=== PATIENT | male | born 1945 | race Caucasian/White ===

== ENCOUNTER 2022-01-01 12:55 | Day surgery (SDC) | payer MEDICARE, SELFPAY ==
[2021-12-16 09:27] VITALS: BMI 33.0
[2022-01-01 13:30] VITALS: BP 155/89; PULSE 84; RESP 18; TEMP 37.1; O2SAT 98; BMI 33.4
[2022-01-01] MEDS: LACTATED RINGERS 1,000 ML 150 ML IV CONT (13:45)
--- NOTE | 2022-01-01 13:49 | WPDANESEPPF ---
Anes - Initial Pre Proc Eval Procedure: Operation Date: 01/01/22 14:30 Proposed Procedures p Screening Colonoscopy - Bean Florian MD Date/Time: 01/01/22 13:49 Surgeon: Bean Florian MD Pre Op Diagnosis: Family History of Colon Cancer Patient Data Age: 76 Gender: M Height: 1.74 m Weight: 101.2 kg Last Vital Signs Temp 37.1 C 01/01/22 13:30 Pulse 84 01/01/22 13:30 Resp 18 01/01/22 13:30 BP 155/89 H 01/01/22 13:30 Pulse Ox 98 01/01/22 13:30 O2 Del Method Room Air 01/01/22 13:30 Allergies Allergy/AdvReac Type Severity Reaction Status Date / Time Sulfa (Sulfonamide Allergy Mild sensative Verified 01/01/22 13:23 Antibiotics) Home Medications Medication Instructions Recorded Confirmed Type aspirin 81 mg tablet,delayed 81 mg PO DAILY 06/27/20 01/01/22 History release (Adult Low Dose Aspirin) cholecalciferol (vitamin D3) 25 25 mcg PO DAILY 06/27/20 01/01/22 History mcg (1,000 unit) capsule cinnamon bark 500 mg capsule 1,000 mg PO DAILY 06/27/20 01/01/22 History docusate sodium 100 mg capsule 700 mg PO DAILY 06/27/20 01/01/22 History (Colace) flaxseed 1,000 mg capsule 1,000 mg PO DAILY 06/27/20 01/01/22 History methylsulfonylmethane 1,000 mg 1,000 mg PO BID 06/27/20 01/01/22 History capsule (MSM) multivitamin 1 tablet PO DAILY 06/27/20 01/01/22 History naproxen sodium 220 mg tablet 220 mg PO BID PRN Pain 06/27/20 01/01/22 History (Flanax (naproxen)) turmeric root extract 500 mg 500 mg PO DAILY 06/27/20 01/01/22 History capsule blood sugar diagnostic #100 ea 03/17/21 09/24/21 Rx losartan 100 mg tablet 100 mg PO DAILY #90 tabs 09/15/21 01/01/22 Rx triamcinolone acetonide 0.1 % 1 applic topical BID #30 grams 09/24/21 01/01/22 Rx topical cream rosuvastatin 5 mg tablet 5 mg PO DAILY #90 tabs 09/30/21 01/01/22 Rx metformin 500 mg tablet 500 mg PO DAILY #90 tabs 10/08/21 01/01/22 Rx hydrochlorothiazide 12.5 mg tablet 12.5 mg PO DAILY #90 tabs 12/12/21 01/01/22 Rx amlodipine 10 mg tablet 5 mg PO DAILY 12/16/21 01/01/22 History Patient hx anesthesia problems: none Family hx anesthesia problems: none Results Review: All pre-operative results and documents have been reviewed as part of the pre-operative evaluation. [facility] Past Medical History Medical History Diabetes mellitus, type 2 Eczema HTN (hypertension), benign Mixed hyperlipidemia Obesity (BMI 30.0-34.9) Surgical History Surgical History H/O arthroscopy of right knee 1989 History of cholecystectomy 2011 History of repair of retinal tear by laser photocoagulation Left eye 2011, right eye 2007 Status post laser cataract surgery of left eye 2013 Status post laser cataract surgery of right eye 2011 Family History Family History Father 1982 COPD COPD (chronic obstructive pulmonary disease) Mother 2019 Dementia Heart disease Colon cancer Sibling Heart disease Sinus, maxillary, cancer, carcinoma Social History Social History Smoking status: Former smoker Second hand tobacco smoke exposure: No Alcohol intake: never Substance use: never Living arrangements: with family Gender identity (if verbalized by the patient): Male Sexual Orientation (if Verbalized by the Patient): Straight or Heterosexual Spiritual care concerns: No Anes - Eval Final PreProcedure Day of Procedure 01/01/22 13:49 Patient weight: obese Heart: regular rate and rhythm Lungs: clear to auscultation Airway: Mallampati scale class II Neurological: alert and oriented Last oral intake: >/= 8 hours ASA classification: III Emergent: no Anesthetic plan: proceed Anesthesia type and monitoring: general GIVS and standard monitoring Results Review: Al
[2022-01-01 13:56] LABS: Glucose Point of Care 111 mg/dl (65-105)
[2022-01-01 14:16] VITALS: BP 111/70; PULSE 66; RESP 20; O2SAT 97
[2022-01-01 14:26] VITALS: BP 124/75; PULSE 74; RESP 20; O2SAT 97
--- NOTE | 2022-01-01 14:29 | WPDANESPN ---
Anes - Prog Note Post-Op Date/Time: 01/01/22 14:29 Cardiovascular status: normal Respiratory status: normal Airway patency: baseline Mental status: baseline Post-Op hydration status: normal Vital Signs: Last Vital Signs Temp 37.1 C 01/01/22 13:30 Pulse 84 01/01/22 13:30 Resp 18 01/01/22 13:30 BP 155/89 H 01/01/22 13:30 Pulse Ox 98 01/01/22 13:30 O2 Del Method Room Air 01/01/22 13:30 Pain Score (VAS): 0/10 I/O: Intake & Output 12/31/21 01/01/22 01/01/22 23:59 07:59 15:59 Intake Total 400 Balance 400 01/01/22 13:43 POC Capillary Glucose 111 H Post-procedural complaints: none Patient Feedback: Patient satisfied with anesthetic care.
[2022-01-01 14:36] VITALS: BP 128/78; PULSE 69; RESP 20; O2SAT 98
--- NOTE | 2022-01-01 15:03 | PM.IMHP ---
H&P: HPI History of Present Illness Date/Time: 01/01/22 15:03 Chief Complaint: Neoplasia screening. Narrative: This is a 76-year-old white male patient presents for screening colonoscopy. Family history of significance father had colon cancer. Patient reports his current weight appetite bowel movements are normal. He denies abdominal pain. Patient has had no bleeding. Patient presents today for screening colonoscopy. Review of Systems Review of Systems: Review of systems noncontributory. PMFSH Past Medical History Medical History Diabetes mellitus, type 2 Eczema HTN (hypertension), benign Mixed hyperlipidemia Obesity (BMI 30.0-34.9) Surgical History Surgical History H/O arthroscopy of right knee 1989 History of cholecystectomy 2011 History of repair of retinal tear by laser photocoagulation Left eye 2011, right eye 2007 Status post laser cataract surgery of left eye 2013 Status post laser cataract surgery of right eye 2011 Family History Family History Father , 1982 COPD COPD (chronic obstructive pulmonary disease) Mother 2019 Dementia Heart disease Colon cancer Sibling Heart disease Sinus, maxillary, cancer, carcinoma Social History Social History Smoking status: Former smoker Second hand tobacco smoke exposure: No Alcohol intake: never Substance use: never Living arrangements: with family Gender identity (if verbalized by the patient): Male Sexual Orientation (if Verbalized by the Patient): Straight or Heterosexual Spiritual care concerns: No Meds Home Medications and Allergies Home Medications Medication Instructions Recorded Confirmed Type aspirin 81 mg tablet,delayed 81 mg PO DAILY 06/27/20 01/01/22 History release (Adult Low Dose Aspirin) cholecalciferol (vitamin D3) 25 25 mcg PO DAILY 06/27/20 01/01/22 History mcg (1,000 unit) capsule cinnamon bark 500 mg capsule 1,000 mg PO DAILY 06/27/20 01/01/22 History docusate sodium 100 mg capsule 700 mg PO DAILY 06/27/20 01/01/22 History (Colace) flaxseed 1,000 mg capsule 1,000 mg PO DAILY 06/27/20 01/01/22 History methylsulfonylmethane 1,000 mg 1,000 mg PO BID 06/27/20 01/01/22 History capsule (MSM) multivitamin 1 tablet PO DAILY 06/27/20 01/01/22 History naproxen sodium 220 mg tablet 220 mg PO BID PRN Pain 06/27/20 01/01/22 History (Flanax (naproxen)) turmeric root extract 500 mg 500 mg PO DAILY 06/27/20 01/01/22 History capsule blood sugar diagnostic #100 ea 03/17/21 09/24/21 Rx losartan 100 mg tablet 100 mg PO DAILY #90 tabs 09/15/21 01/01/22 Rx triamcinolone acetonide 0.1 % 1 applic topical BID #30 grams 09/24/21 01/01/22 Rx topical cream rosuvastatin 5 mg tablet 5 mg PO DAILY #90 tabs 09/30/21 01/01/22 Rx metformin 500 mg tablet 500 mg PO DAILY #90 tabs 10/08/21 01/01/22 Rx hydrochlorothiazide 12.5 mg tablet 12.5 mg PO DAILY #90 tabs 12/12/21 01/01/22 Rx amlodipine 10 mg tablet 5 mg PO DAILY 12/16/21 01/01/22 History Allergies Allergy/AdvReac Type Severity Reaction Status Date / Time Sulfa (Sulfonamide Allergy Mild sensative Verified 01/01/22 13:23 Antibiotics) Vital Signs Vital Signs - 24 hr 01/01/22 13:30 01/01/22 14:16 01/01/22 14:26 Temperature 98.8 F Pulse Rate 84 66 74 Respiratory Rate 18 20 20 Blood Pressure 155/89 H 111/70 124/75 Pulse Oximetry 98 97 97 Oxygen Delivery Room Air Room Air Room Air 01/01/22 14:36 Temperature Pulse Rate 69 Respiratory Rate 20 Blood Pressure 128/78 Pulse Oximetry 98 Oxygen Delivery Room Air Exam Narrative: Physical exam reveals patient be alert. Vital signs stable. HEENT exam unremarkable. Patient anicteric. Lungs are clear. Heart without murmur. Abdomen bowel sound
== END 2022-01-01 14:50 | disposition home or self-care (01) ==
PROVIDERS: PCP Family Medicine; Visit Provider Internal Medicine Gastroenterology
PROC: 0DJD8ZZ Inspection of Lower Intestinal Tract, Via Natural or Artificial Opening Endoscopic (ICD-10-PCS; CPT 45378; principal; 2022-01-01 14:30)
DX: Z80.0 Family history of malignant neoplasm of digestive organs (principal)
CPT/HCPCS: 45378

== ENCOUNTER 2023-10-27 12:01 | Outpatient (CLI) | payer MEDICARE, SELFPAY ==
--- NOTE | 2023-10-27 12:56 | ECG_ITS ---
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
[2023-10-27 13:38] LABS: Urine Cotinine NEGATIVE
[2023-10-27 13:46] LABS: Partial Thromboplastin Time 28.4 Seconds (22.3-36.8)
[2023-10-27 16:00] LABS: MRSA (PCR) NOT DETECTED (NOT DETECTE)
== END 2023-10-27 12:02 | disposition home or self-care (01) ==
LOC: ANHSURGERY 12:02
PROVIDERS: PCP Family Medicine; Visit Provider Orthopaedic Surgery
DX: M17.11 Unilateral primary osteoarthritis, right knee (principal); Z01.818 Encounter for other preprocedural examination
CPT/HCPCS: 80307; 85610; 85730; 87641; 93005

== ENCOUNTER 2023-11-10 00:34 | Day surgery (SDC) | payer MEDICARE, SELFPAY ==
[2023-10-27 12:07] VITALS: BMI 33.5
--- NOTE | 2023-10-27 12:25 | PC.NURSE ---
Report to the Outpatient Waiting Room, entrance under the green pavilion located off [facility], at time __8:30 AM on date _11/10/23 . Planned Procedure Time: 1030 AM . Time changes happen often and if your time is changed the preop area will call you the afternoon before. - You and your visitor will be asked to self-screen and do not enter if you have any COVID symptoms. - A mask is optional within the hospital at this time. Patients may have clear liquids (water, carbonated beverages, clear teas, apple juice) until 3 hours prior to surgery(7:30 AM) with a maximum of 20 ounces. - No food from midnight until time of surgery - Infants may have breast milk until 4 hours before surgery, formula 6 hours prior to surgery. - Children will be allowed to drink immediately following surgery. If applicable, please bring a bottle or sippy cup to assist with drinking. Juice, water, soda, and popsicles are readily available. For infants on formula, please bring formula the day of surgery. Pacifiers are allowed. Take the following medications with a SIP of water the morning of surgery: ___NONE DO NOT STOP ANY OF YOUR OTHER PRESCRIPTION MEDICATIONS PRIOR TO SURGERY ?EXCEPT THE FOLLOWING Medications to discontinue per physician HOLD ALL VITAMINS AND SUPPLEMENTS 3 DAYS PRE OP .LAST DOSE 11/06/23 TOTAL JOINT CLASS 11/03/23 AT 10 AM Please no make-up, nail yoruba, hairspray, perfume, deodorant, or body powder the day of surgery. No jewelry (including any body piercings) or valuables the day of surgery, leave them at home. Please take a shower or bath the night before, or the morning of, surgery with an antibacterial soap. Wear comfortable, loose fitting clothing. Children are encouraged to wear pajamas. - Jewelry must be removed prior to entering the operating room. Rings and piercings that are not removed may be cut off. - The hospital will not accept responsibility for valuables. - Please leave all valuables, including medications, at home the day of surgery. If you are going home after surgery, a licensed spotter driver must drive you home. - NO public transportation without another adult if you receive anesthesia. - We recommend that an adult stay with you for 24 hours following discharge. - We also recommend that you do not drive, make important decision, drink alcoholic beverages, or take any drugs that were not prescribed by your health care provider for at least 24 hours after your discharge ti Follow any additional instructions given to you from your surgeon. If you or anyone in your household have experienced Covid symptoms in the past week, please notify your surgeon or the nurse liaison at the phone number below for possible testing. VERBAL AND WRITTEN instructions given to __PATIENT and asked if any additional questions and then verbalized understanding. Patient advised to call surgeon office or pre surgery nurse liaison [phone] if any additional questions.
[2023-10-27 12:44] VITALS: BP 115/70; PULSE 84; RESP 18; TEMP 36.9; O2SAT 99
[2023-11-10] VITALS (14 sets, daily range): BP systolic 112–156; BP diastolic 57–84; PULSE 79–91; RESP 13–20; TEMP 36.2–36.5; O2SAT 93–100
--- NOTE | ~2023-11-10 | XR_ITS ---
[id number] Ordering provider: Panchito Jean-Baptiste MD History: . POST-OP . Comparison: None. FINDINGS: BONES: No acute fracture or dislocation. JOINT SPACES: Total knee arthroplasty with postoperative changes. SOFT TISSUES: Postoperative changes in the skin and subcutaneous tissues. IMPRESSION: Total knee arthroplasty with postoperative changes. Reviewed, dictated and finalized at location A.
--- NOTE | 2023-11-10 07:07 | WPDHPUPDATE1 ---
History and Physical Update Update Date/Time: 11/10/23 07:07 History and Physical has been reviewed, including an updated exam of the patient. There are NO changes in the patient's condition. Risks, benefits, and alternatives have been discussed and questions answered. Patient agrees to proceed with procedure.
[2023-11-10] MEDS: ACETAMINOPHEN 500 MG TABLET 1000 MG PO (08:50)
[2023-11-10] MEDS: LACTATED RINGERS 1,000 ML 30 ML IV CONT ×2 (08:58→13:16)
[2023-11-10 09:12] LABS: Glucose Point of Care 128 mg/dl (65-105)
[2023-11-10] MEDS: TRANEXAMIC ACID 1,000MG/ISO100 1,000 MG/100 ML BAG 200 MG IVPB (10:15)
--- NOTE | 2023-11-10 10:27 | WPDANESEPPF ---
Anes - Initial Pre Proc Eval Procedure: Operation Date: 11/10/23 10:30 Proposed Procedures p Right Total Knee Arthroplasty - Panchito Jean-Baptiste MD Date/Time: 11/10/23 10:27 Surgeon: Panchito Jean-Baptiste MD Pre Op Diagnosis: right knee OA Patient Data Age: 78 Gender: M Height: 1.73 m Weight: 99.9 kg Last Vital Signs Temp 97.7 F 11/10/23 09:35 Pulse 82 11/10/23 09:35 Resp 16 11/10/23 09:35 BP 137/71 11/10/23 09:35 Pulse Ox 97 11/10/23 09:35 O2 Del Method Room Air 11/10/23 09:35 Allergies Allergy/AdvReac Type Severity Reaction Status Date / Time Sulfa (Sulfonamide Allergy Mild sensative Verified 10/29/23 09:38 Antibiotics) Home Medications Medication Instructions Recorded Confirmed Type cholecalciferol (vitamin D3) 25 50 mcg PO DAILY 06/27/20 10/29/23 History mcg (1,000 unit) capsule cinnamon bark 500 mg capsule 1,000 mg PO DAILY 06/27/20 10/29/23 History docusate sodium 100 mg capsule 700 mg PO DAILY 06/27/20 10/29/23 History (Colace) flaxseed 1,000 mg capsule 1,000 mg PO DAILY 06/27/20 10/29/23 History multivitamin 1 tablet PO DAILY 06/27/20 10/29/23 History turmeric root extract 500 mg 500 mg PO DAILY 06/27/20 10/29/23 History capsule blood sugar diagnostic #100 ea 04/06/22 10/29/23 Rx triamcinolone acetonide 0.1 % 1 applic topical BID #30 grams 06/24/22 10/29/23 Rx topical cream biotin 5,000 mcg chewable tablet 5,000 mcg PO DAILY 12/03/22 10/29/23 History chondroitin sulfate A sodium 400 600 mg PO DAILY 12/03/22 10/29/23 History mg capsule glucosamine HCl 750 mg tablet 750 mg PO DAILY 12/03/22 10/29/23 History vitamin K2 100 mcg capsule 100 mcg PO DAILY 12/03/22 10/29/23 History lancets 33 gauge (OneTouch Delica #200 ea 01/13/23 10/29/23 Rx Plus Lancet) lancing device with lancets kit #1 ea 01/13/23 10/29/23 Rx (OneTouch Delica Plus Lancing Device kit) blood sugar diagnostic (OneTouch #100 ea 05/07/23 10/29/23 Rx Ultra Test strips) hydrochlorothiazide 12.5 mg tablet 12.5 mg PO DAILY #90 tabs 07/29/23 10/29/23 Rx metformin 500 mg tablet 1,000 mg PO BIDWMEAL #400 tabs 10/22/23 10/29/23 Rx amlodipine 10 mg tablet 10 mg PO HS 10/27/23 10/29/23 History losartan 100 mg tablet 100 mg PO HS 10/27/23 10/29/23 History potassium 99 mg tablet 99 mg PO DAILY 10/27/23 10/29/23 History rosuvastatin 5 mg tablet 5 mg PO HS 10/27/23 10/29/23 History chlorhexidine gluconate 4 % 1 applic topical DAILY #237 mL 10/29/23 10/29/23 Rx topical liquid (Hibiclens) Laboratory Tests 11/10/23 11/10/23 08:49 09:08 POC Capillary Glucose 128 H mg/dl (65-105) Blood Type A Positive Antibody Screen Negative Patient hx anesthesia problems: none Family hx anesthesia problems: none Results Review: All pre-operative results and documents have been reviewed as part of the pre-operative evaluation. [facility] Past Medical History Medical History Arthritis of both knees Diabetes mellitus, type 2 Eczema HTN (hypertension), benign Left knee DJD Mixed hyperlipidemia Obesity (BMI 30.0-34.9) Other fatigue Right knee DJD Surgical History Surgical History H/O arthroscopy of right knee 1989 History of cholecystectomy 2011 History of repair of retinal tear by laser photocoagulation Left eye 2011, right eye 2008 Status post laser cataract surgery of left eye 2013 Status post laser cataract surgery of right eye 2011 Family History Family History Father , 1982 COPD COPD (chronic obstructive pulmonary disease) Mother , 2019 Dementia Heart disease Colon cancer Sibling Heart disease Sinus, maxillary, cancer, carcinoma Social History Social History Smoking pack
--- NOTE | 2023-11-10 10:40 | WPDANESPNB ---
Anes - Peripheral Nerve Block Date/Time: 11/10/23 10:40 I have discussed with the patient/family/POA the placement of a peripheral nerve block for post-operative pain management, including associated risks, benefits, complications, and side effects. Alternative methods of post-operative analgesia were detailed. Questions were solicited and answers provided to the satisfaction of the patient/family/POA. Time-Out: A pre-procedural Time-Out was completed immediately before starting the procedure and confirmed: Patient Identification, Site, Procedure, Patient Position and the Availability of Requisite Equipment. Clinical Indications: Acute post-operative pain management requested by the operative surgeon. Nerve Block Insertion Note Anes-nerve block: adductor canal right Patient position: supine Skin prep: chlorhexidine Needle: 22 gauge, stimulating, insulated echogenic needle. Needle length: 80 mm Technique: ultrasound Injectate: other (Bupiv 0.5% 15 mls. ) Observations: tolerated well Complications: none Procedure start time:: 2 Procedure end time:: 1037
[2023-11-10] MEDS: ceFAZolin 2 GM/D5W 50 ML 2 GM/50 ML BAG IVPB ×2 (10:56→18:17)
[2023-11-10] MEDS: SODIUM CHLORIDE 0.9% IV 37.7 ML, MORPHINE SULFATE INJ (*CRX) 2 MG, ROPivacaine HCL 1% 2... INFILTRATE (11:19)
[2023-11-10] MEDS: TRANEXAMIC ACID 1,000 MG/10 ML AMPUL 1000 MG IV PUSH (12:27)
[2023-11-10 13:21] LABS: Glucose Point of Care 149 mg/dl (65-105)
--- NOTE | 2023-11-10 13:22 | W.PM.PROC2 ---
Procedure Note - Detailed Date of Procedure 11/10/23 Pre-op Diagnosis right knee OA Post-op Diagnosis Same Procedure Performed R TKA Surgeon Panchito Jean-Baptiste MD Anesthesia General Description of Procedure THE RIGHT KNEE WAS PREPPED AND DRAPED IN THE STERILE FASHION. THERE WAS A 15 DEGREE FLEXION CONTRACTURE. A MIDLINE SKIN INCISION WAS MADE. A MEDIAL PARAPATELLAR ARTHROTOMY WAS MADE. THE PATELLA WAS EVERTED. THERE WAS TRICOMPARTMENT DJD. THERE WAS MINIMAL PATELLA DJD. AN INTRAMEDULLARY PRICE WAS PLACED IN THE FEMUR. A DISTAL FEMORAL CUT WAS MADE IN 5 DEGREES OF VALGUS REMOVING APPROXIMATELY 11 MM OF BONE FROM THE DISTAL FEMUR. THE FEMUR WAS SIZED TO 67.5. A 67.5 FEMORAL CUTTING BLOCK WAS PLACED IN 3 DEGREES OF EXTERNAL ROTATION AND IN ALIGNMENT WITH JASMIN'S LINE AND THE TRANSEPICONDYLAR AXIS. ANTERIOR POSTERIOR AND CHAMFER CUTS WERE MADE. THE CUTS WERE EXCELLENT. NEXT AN INTRAMEDULLARY CUTTING GUIDE WAS PLACED IN THE TIBIA. A TRANS TIBIAL CUT WAS MADE ALONG THE LONG AXIS OF THE TIBIA. APPROXIMATELY 10 MM OF BONE WAS REMOVED FROM THE HIGH SIDE OF THE TIBIA. THE TIBIA WAS THEN PLANED TO A SMOOTH SURFACE. POSTERIOR FEMORAL OSTEOPHYTES WERE REMOVED FROM THE FEMORAL CONDYLES. A 75 TIBIAL TRIAL WAS PLACED IN ALIGNMENT WITH THE 1/3 MEDIAL ASPECT OF THE TIBIAL TUBERCLE. THEN A 67.5 FEMORAL TRIAL COMPONENT WAS PLACED. BOTH HAD EXCELLENT FITS. EVENTUALLY A 10 MM CR POLYETHYLENE TRIAL COMPONENT WAS PLACED. THE KNEE WAS TAKEN THROUGH A RANGE OF MOTION. THE KNEE CAME OUT TO FULL EXTENSION. THERE WAS NO ABNORMAL TILT TO THE PATELLA. THERE WAS GOOD A/P AND VARUS/VALGUS STABILITY. THERE WAS NO EXCESSIVE ROLL BACK WITH FLEXION. THE TRIAL COMPONENTS WERE REMOVED. THEN A 67.5 FEMORAL COMPONENT AND 75 TIBIAL COMPONENT WITH A 10 CR POLYETHYLENE COMPONENT WERE CEMENTED INTO PLACE. ONCE THE CEMENT WAS HARD THE KNEE WAS TAKEN THROUGH A ROM AGAIN AND FOUND TO BE STABLE WITH NO PATELLA TILT NO EXCESSIVE ROLL BACK WITH FLEXION AND GOOD STABILITY WITH COMPLETE AND FULL EXTENSION. THE KNEE WAS IRRIGATED WITH STERILE BETADINE AND WATER FOR ABOUT 3 MINUTES. THE BLEEDERS WERE CAUTERIZED. THE ARTHROTOMY WAS REPAIRED WITH NUMBER 1 VICRYL. THE SUB CUTANEOUS LAYER WITH 2-0 VICRYL AND THE SKIN WITH YASMANI. THE WOUND WAS WASHED AND A STERILE DRESSING WAS APPLIED. PATIENT WAS EXTUBATED. Estimated Blood Loss -150.0 Pathology None sent Complications No immediate complications Condition Stable Disposition PACU
--- NOTE | 2023-11-10 13:40 | WPDANESEPPF ---
Anes - Initial Pre Proc Eval Procedure: Operation Date: 11/10/23 10:30 Proposed Procedures p Right Total Knee Arthroplasty - Panchito Jean-Baptiste MD Date/Time: 11/10/23 13:40 Surgeon: Panchito Jean-Baptiste MD Pre Op Diagnosis: right knee OA Patient Data Age: 78 Gender: M Height: 1.73 m Weight: 99.9 kg Last Vital Signs Temp 97.4 F L 11/10/23 13:16 Pulse 79 11/10/23 13:30 Resp 13 11/10/23 13:30 BP 129/84 11/10/23 13:30 Pulse Ox 100 11/10/23 13:30 O2 Del Method Simple Face Mask 11/10/23 13:30 O2 Flow Rate 8 11/10/23 13:30 Allergies Allergy/AdvReac Type Severity Reaction Status Date / Time Sulfa (Sulfonamide Allergy Mild sensative Verified 10/29/23 09:38 Antibiotics) Home Medications Medication Instructions Recorded Confirmed Type cholecalciferol (vitamin D3) 25 50 mcg PO DAILY 06/27/20 10/29/23 History mcg (1,000 unit) capsule cinnamon bark 500 mg capsule 1,000 mg PO DAILY 06/27/20 10/29/23 History docusate sodium 100 mg capsule 700 mg PO DAILY 06/27/20 10/29/23 History (Colace) flaxseed 1,000 mg capsule 1,000 mg PO DAILY 06/27/20 10/29/23 History multivitamin 1 tablet PO DAILY 06/27/20 10/29/23 History turmeric root extract 500 mg 500 mg PO DAILY 06/27/20 10/29/23 History capsule blood sugar diagnostic #100 ea 04/06/22 10/29/23 Rx triamcinolone acetonide 0.1 % 1 applic topical BID #30 grams 06/24/22 10/29/23 Rx topical cream biotin 5,000 mcg chewable tablet 5,000 mcg PO DAILY 12/03/22 10/29/23 History chondroitin sulfate A sodium 400 600 mg PO DAILY 12/03/22 10/29/23 History mg capsule glucosamine HCl 750 mg tablet 750 mg PO DAILY 12/03/22 10/29/23 History vitamin K2 100 mcg capsule 100 mcg PO DAILY 12/03/22 10/29/23 History lancets 33 gauge (OneTouch Delica #200 ea 01/13/23 10/29/23 Rx Plus Lancet) lancing device with lancets kit #1 ea 01/13/23 10/29/23 Rx (OneTouch Delica Plus Lancing Device kit) blood sugar diagnostic (OneTouch #100 ea 05/07/23 10/29/23 Rx Ultra Test strips) hydrochlorothiazide 12.5 mg tablet 12.5 mg PO DAILY #90 tabs 07/29/23 10/29/23 Rx metformin 500 mg tablet 1,000 mg PO BIDWMEAL #400 tabs 10/22/23 10/29/23 Rx amlodipine 10 mg tablet 10 mg PO HS 10/27/23 10/29/23 History losartan 100 mg tablet 100 mg PO HS 10/27/23 10/29/23 History potassium 99 mg tablet 99 mg PO DAILY 10/27/23 10/29/23 History rosuvastatin 5 mg tablet 5 mg PO HS 10/27/23 10/29/23 History chlorhexidine gluconate 4 % 1 applic topical DAILY #237 mL 10/29/23 10/29/23 Rx topical liquid (Hibiclens) Laboratory Tests 11/10/23 11/10/23 11/10/23 08:49 09:08 13:19 POC Capillary Glucose 128 H mg/dl 149 H mg/dl (65-105) (65-105) Blood Type A Positive Antibody Screen Negative Patient hx anesthesia problems: none Family hx anesthesia problems: none Results Review: All pre-operative results and documents have been reviewed as part of the pre-operative evaluation. [facility] Past Medical History Medical History Arthritis of both knees Diabetes mellitus, type 2 Eczema HTN (hypertension), benign Left knee DJD Mixed hyperlipidemia Obesity (BMI 30.0-34.9) Other fatigue Right knee DJD Surgical History Surgical History H/O arthroscopy of right knee 1989 History of cholecystectomy 2011 History of repair of retinal tear by laser photocoagulation Left eye 2011, right eye 2008 Status post laser cataract surgery of left eye 2013 Status post laser cataract surgery of right eye 2011 Family History Family History Father , 1982 COPD COPD (chronic obstructive pulmonary disease) Mother , 2019 Dementia Heart disease Colon cancer Sibling Heart disease Sinus, maxillary, cancer, carcinoma Social Histor
[2023-11-10] MEDS: SENNA/DOCUSATE SODIUM TABLET 2 TAB PO (16:59)
[2023-11-10] MEDS: metFORMIN HCL 500 MG TABLET 1000 MG PO (16:59)
[2023-11-10] MEDS: ACETAMINOPHEN 325 MG TABLET 650 MG PO ×2 (16:59→23:33)
[2023-11-10] MEDS: CELECOXIB 200 MG CAPSULE PO (16:59)
--- NOTE | 2023-11-10 17:36 | ADMGEN ---
This patient, Judson Mendoza, was admitted to [facility] Surg Room 312-01. Report received from LEBRON Lee. Patient/family oriented to hospital policies and general routines including ID bracelet, bed and alarms, visiting hours, pain management, procedures, bathroom and other care routines, personal items, smoking policy, room service/diet, and visiting hours. Information on how to activate the Rapid Response Team has been discussed. Patient/Family are encouraged to report perceived risks to care and to ask questions if they do not understand what they are told or what they should do.
[2023-11-10] MEDS: amLODIPine BESYLATE 10 MG TABLET PO (21:03)
[2023-11-10] MEDS: oxyCODONE/ACETAMINOPHEN (*CRX) 5-325 MG TABLET 1 TABLET PO (21:03)
[2023-11-10] MEDS: LOSARTAN POTASSIUM 100 MG TABLET PO (21:03)
[2023-11-10] MEDS: ROSUVASTATIN 5 MG TABLET PO (21:03)
[2023-11-10] MEDS: FAMOTIDINE 20 MG TABLET PO (21:03)
[2023-11-10] MEDS: ASPIRIN 81 MG ENTERIC TABLET PO (21:03)
[2023-11-11] MEDS: ceFAZolin 2 GM/D5W 50 ML 2 GM/50 ML BAG IVPB ×2 (03:15→11:12)
[2023-11-11 04:30] VITALS: BP 115/60; PULSE 75; RESP 18; TEMP 36.3; O2SAT 97
[2023-11-11 05:26] LABS: Basophils Percent Auto 0.4 % (0.2-1.2); Eosinophils Absolute Auto 0.1 K/mm3 (0-0.3); Eosinophils Percent Auto 0.9 % (0-4.4); Hematocrit 34.2 % (42.0-52.0); Hemoglobin 11.1 g/dL (14.0-18.0); Immature Granulocyte Absolute 0.05 K/mm3 (0.00-0.031); Immature Granulocyte Percent A 0.4 % (0-0.5); Lymphocytes Absolute Auto 1.62 K/mm3 (0.9-3.2); Lymphocytes Percent Auto 14.2 % (18.3-44.2); Mean Corpuscular HGB Conc 32.5 g/dl (32-36); Mean Corpuscular Hemoglobin 31.3 pg (26-34); Mean Corpuscular Volume 96.3 fl (80-100); Mean Platelet Volume 10.5 fl (7.4-10.4); Monocytes Absolute Auto 2.1 K/mm3 (0.1-0.6); Monocytes Percent Auto 18.4 % (2.6-8.5); Neutrophils Absolute Auto 7.5 K/mm3 (1.3-6.7); Neutrophils Percent Auto 65.7 % (45.5-73.1); Platelet Count Result 223 k/mm3 (150-375); Red Blood Count 3.55 M/mm3 (4.6-6.20); Red Cell Distribution Width 13.6 % (11.5-14.5); White Blood Count 11.4 K/mm3 (4.5-10.0)
[2023-11-11] MEDS: ACETAMINOPHEN 325 MG TABLET 650 MG PO ×2 (05:33→11:12)
[2023-11-11 05:36] LABS: Anion Gap 6 mmol/L (4-12); Blood Urea Nitrogen 19 mg/dL (9-20); Calcium 8.9 mg/dL (8.4-10.2); Carbon Dioxide 27 mmol/L (22-30); Chloride 105 mmol/L (98-107); Estimated CRCL calculation 61 ml/min; Estimated Glomerular Filt Rate > 60; Glucose 131 mg/dL (65-110); Sodium 138 mmol/L (137-145)
[2023-11-11] MEDS: ASPIRIN 81 MG ENTERIC TABLET PO (08:02)
[2023-11-11] MEDS: hydroCHLOROthiazide 12.5 MG CAPSULE PO (08:02)
[2023-11-11] MEDS: CELECOXIB 200 MG CAPSULE PO (08:02)
[2023-11-11] MEDS: SENNA/DOCUSATE SODIUM TABLET 2 TAB PO (08:02)
[2023-11-11] MEDS: polyethylene glycoL 3350 17 GM POWD.PACK PO (08:02)
[2023-11-11] MEDS: FAMOTIDINE 20 MG TABLET PO (08:02)
[2023-11-11] MEDS: oxyCODONE/ACETAMINOPHEN (*CRX) 5-325 MG TABLET 1 TABLET PO ×2 (08:02→15:53)
[2023-11-11] MEDS: CHOLECALCIFEROL 1,000 UNITS TABLET 2000 UNITS PO (08:02)
[2023-11-11] MEDS: metFORMIN HCL 500 MG TABLET 1000 MG PO (08:03)
[2023-11-11 08:51] VITALS: O2SAT 96
--- NOTE | 2023-11-11 12:41 | PM.PNORT ---
Progress Note: A&P Assessment and Plan (1) S/P total knee arthroplasty: Qualifiers: Laterality: right Qualified Code(s): Z96.651 - Presence of right artificial knee joint Code(s): Z96.659 - Presence of unspecified artificial knee joint Status: Acute Assessment and Plan: POD #1: Right TKA Continue PT/OT. WBAT. Walker. HIGH FALL RISK. Continue pain control. Ice Knee. Protect skin. DVT prophylaxis with Aspirin 81mg PO BID. SCDs. Incentive Spirometry Use reviewed. Monitor Dressing. Change prior to discharge. Bowel Regimen. Dispo: Home Health pending progress with PT/OT Plan Reviewed history, exam, radiographs and current labs with attending MD and covering surgeon, Dr. Jean-Baptiste, who agrees with current plan as indicated above. No further recommendations from Dr. Jean-Baptiste at this time. Subjective Subjective Date/Time Seen: 11/11/23 12:41 Post Op day: 1 Interval history: POD #1: Right TKA Patient doing well. Pain well controlled. Ready for d/c home today. Review of Systems Review of Systems: All systems reviewed & are unremarkable except as noted in HPI and below Constitutional: Constitutional: Denies fever(s) and Denies headache(s) ENT: Denies headache(s) Cardiovascular: Cardiovascular: Denies chest pain, Denies diaphoresis, Denies palpitations and Denies dyspnea Respiratory: Respiratory: Denies dyspnea Gastrointestinal: Gastrointestinal: Denies abdominal pain, Denies constipation, Denies nausea and Denies vomiting Genitourinary: Genitourinary: Denies dysuria and Reports nocturia Musculoskeletal: Musculoskeletal: Reports arthralgias (Right Knee ) and Reports joint swelling (Right Knee ) Neurologic: Denies headache(s) Endocrine: Endocrine: Denies palpitations Exam Const: General: comfortable and no acute distress Resp: Effort & Inspection: normal respiratory effort Cardio: Rate: regular rate Rhythm: regular rhythm GI: GI Palp: Yes Soft to palpation, No Tenderness to palpation present (GI) and No Guarding due to palpation present (GI) Skin: General skin exam: wounds noted Wounds: wounds noted Other: Incision c/d/i. No surrounding redness/warmth. No hematoma. Mild ecchymosis. No wound dehiscence Neuro: Cognition (Neuro): normal cognition Other: NV intact aside from block. Moves toes. Sensation intact to light touch. +ankle dorsiflexion/plantarflexion. Extrem: Right lower extremity: normal to inspection, knee Details: tenderness (diffuse, mild ) Location: of the patella, swelling (diffuse, consistent with surgical intervention ), abnormal ROM Details: pain with active ROM during, pain with passive ROM during and with range as follows (limited due to recent surgical intervention ); able to extend lower leg actively and ecchymosis (mild ), lower leg (Negative Karla's Sign ) Details: normal to inspection; no erythema and no tenderness, ankle (+ankle dorsiflexion/plantarflexion ) Details: normal to inspection, no edema and normal ROM; no tenderness, no swelling and no ecchymosis and foot Details: normal capillary refill, normal to inspection, vascular exam Details: dorsalis pedis pulse present and motor-sensory exam Details: light-touch normal; no tenderness Left lower extremity: normal to inspection Psych: Mental Status: mental status grossly normal Objective Data Vital Signs Vital Signs: Vital Signs - 24 hr 11/10/23 13:16 11/10/23 13:30 11/10/23 13:45 Temperature 36.3 C L Pulse Rate 84 79 81 Respiratory Rate 14 13 20 Blood Pressure 143/67 H 129/84 139/81 Pulse Oximetry 95 100 96 Oxygen Delivery Simple Face Mask Simple Face Mask Room Air Oxygen Flow Rate 8 8 11/10/23 14:00 11/10/23 14:15 11/10/23 14:30 Temperature Pulse Rate 83 91 88 Respiratory Rate 14 14 17 Blood Pressure 149/75 H 137/80 143/81 H Pulse Oximetry 93 98 95 Oxygen Delivery Room Air Nasal Cannula Nasal Cannula Oxygen Flow Rate 2 2 11/10/23 14:39 11/10/23 15:
--- NOTE | 2023-11-11 13:25 | PM.DS ---
DS: Admitting Diagnosis Discharge Date 11/11/23 Admitting Diagnosis Right Knee DJD DS: Discharge Diagnosis Discharge Diagnosis (1) S/P total knee arthroplasty: Qualifiers: Laterality: right Qualified Code(s): Z96.651 - Presence of right artificial knee joint Code(s): Z96.659 - Presence of unspecified artificial knee joint Status: Acute Assessment and Plan: POD #1: Right TKA Continue PT/OT. WBAT. Walker. HIGH FALL RISK. Continue pain control. Ice Knee. Protect skin. DVT prophylaxis with Aspirin 81mg PO BID. SCDs. Incentive Spirometry Use reviewed. Monitor Dressing. Change prior to discharge. Bowel Regimen. Dispo: Home Health pending progress with PT/OT Plan Reviewed history, exam, radiographs and current labs with attending MD and covering surgeon, Dr. Jean-Baptiste, who agrees with current plan as indicated above. No further recommendations from Dr. Jean-Baptiste at this time. DS: Summary Hospital Course Reason for hospitalization: Right TKA Hospital Course: 78 year old male admitted s/p Right TKA for postoperative medical management, pain control and mobilization with PT/OT. Patient progressed well with PT/OT. Pain and vitals remained stable throughout. The patient has been cleared to be discharged home with home health at this time. All discharge care instructions reviewed at depth. New medications reviewed. Follow up planned for 3 weeks in the outpatient orthopedic clinic with Dr. Jean-Baptiste. Dr. Jean-Baptiste in agreement with safe discharge at this time. Status at Discharge Functional status at discharge: uses cane/walker Overall status at discharge: patient is progressing back to baseline Time Spent with Patient Time attestation: Total time spent providing and/or coordinating discharge services: Exam Const: General: comfortable and no acute distress Resp: Effort & Inspection: normal respiratory effort Cardio: Rate: regular rate Rhythm: regular rhythm Skin: General skin exam: wounds noted Wounds: wounds noted Other: Incision c/d/i. No surrounding redness/warmth. No hematoma. Mild ecchymosis. No wound dehiscence Neuro: Cognition (Neuro): normal cognition Other: NV intact aside from block. Moves toes. Sensation intact to light touch. +ankle dorsiflexion/plantarflexion. Extrem: Right lower extremity: normal to inspection, knee Details: tenderness (diffuse, mild ) Location: of the patella, swelling (diffuse, consistent with surgical intervention ), abnormal ROM Details: pain with active ROM during, pain with passive ROM during and with range as follows (limited due to recent surgical intervention ); able to extend lower leg actively and ecchymosis (mild ), lower leg (Negative Karla's Sign ) Details: normal to inspection; no erythema and no tenderness, ankle (+ankle dorsiflexion/plantarflexion ) Details: normal to inspection, no edema and normal ROM; no tenderness, no swelling and no ecchymosis and foot Details: normal capillary refill, normal to inspection, vascular exam Details: dorsalis pedis pulse present and motor-sensory exam Details: light-touch normal; no tenderness Left lower extremity: normal to inspection Psych: Mental Status: mental status grossly normal DS: Data Data Completed and Pending Labs on day of discharge: Labs from last 24 hours 11/11/23 04:43 WBC 11.4 H RBC 3.55 L Hgb 11.1 L Hct 34.2 L MCV 96.3 MCH 31.3 MCHC 32.5 RDW 13.6 Plt Count 223 MPV 10.5 H Immature Gran % (Auto) 0.4 Neut % (Auto) 65.7 Lymph % (Auto) 14.2 L [place] % (Auto) 18.4 H Eos % (Auto) 0.9 Baso % (Auto) 0.4 Lymph # (Auto) 1.62 [place] # (Auto) 2.1 H Eos # (Auto) 0.1 Baso # (Auto) 0.0 Abs Immat Gran (auto) 0.05 H Absolute Neuts (auto) 7.5 H Absolute Nucleated RBC 0.000 Nucleated RBC % 0.0 Sodium 138 Potassium 4.0 Chloride 105 Carbon Dioxide 27 Anion Gap 6 BUN 19 Creatinine 1.00 Estim Creat Clear Calc 61 Estimated GFR > 60 Glucose 131 H
--- NOTE | 2023-11-11 14:31 | WPDANESPN ---
Anes - Prog Note Post-Op Date/Time: 11/11/23 14:31 Cardiovascular status: normal Respiratory status: normal Airway patency: baseline Mental status: baseline Post-Op hydration status: normal Vital Signs: Last Vital Signs Temp 36.3 C L 11/11/23 04:30 Pulse 75 11/11/23 04:30 Resp 18 11/11/23 04:30 BP 115/60 11/11/23 04:30 Pulse Ox 96 11/11/23 08:51 O2 Del Method Room Air 11/11/23 08:51 O2 Flow Rate 2 11/10/23 14:39 Pain Score (VAS): 06/26 I/O: Intake & Output 11/10/23 11/11/23 11/11/23 23:59 07:59 15:59 Intake Total 561 758 0066 Output Total 600 1950 500 Balance -310 -1600 780 Laboratory Tests 11/11/23 04:43 11/11/23 04:43 11/11/23 04:43 WBC 11.4 H RBC 3.55 L Hgb 11.1 L Hct 34.2 L MCV 96.3 MCH 31.3 MCHC 32.5 RDW 13.6 Plt Count 223 MPV 10.5 H Immature Gran % (Auto) 0.4 Neut % (Auto) 65.7 Lymph % (Auto) 14.2 L [place] % (Auto) 18.4 H Eos % (Auto) 0.9 Baso % (Auto) 0.4 Lymph # (Auto) 1.62 [place] # (Auto) 2.1 H Eos # (Auto) 0.1 Baso # (Auto) 0.0 Abs Immat Gran (auto) 0.05 H Absolute Neuts (auto) 7.5 H Absolute Nucleated RBC 0.000 Nucleated RBC % 0.0 Sodium 138 Potassium 4.0 Chloride 105 Carbon Dioxide 27 Anion Gap 6 BUN 19 Creatinine 1.00 Estim Creat Clear Calc 61 Estimated GFR > 60 Glucose 131 H Calcium 8.9 Post-procedural complaints: none Patient Feedback: Patient satisfied with anesthetic care.
== END 2023-11-11 16:15 | disposition home health service (06) ==
LOC: ANHSURGERY 08:31 → ANH3MEDSUR 14:52
PROVIDERS: PCP Family Medicine; Visit Provider Orthopaedic Surgery
PROC: (CPT 27447; principal; 2023-11-10 10:30)
DX: M17.11 Unilateral primary osteoarthritis, right knee (principal); G89.18 Other acute postprocedural pain; E11.9 Type 2 diabetes mellitus without complications; I10 Essential (primary) hypertension; E78.2 Mixed hyperlipidemia; E66.9 Obesity, unspecified; Z68.33 Body mass index [BMI] 33.0-33.9, adult; Z87.891 Personal history of nicotine dependence; Z79.84 Long term (current) use of oral hypoglycemic drugs
CPT/HCPCS: 27447; 64447; 36415; 73560; 80048; 80307; 82948; 85025; 85610; 85730; 86850; 86900; 86901; 87641; 93005; 97110; 97116; 97161; 97165; 97530; A9270; C1713; C1776; J0171; J0690; J1100; J1885; J2270; J2371; J2405; J2704; J2795; J3010; J7120

== ENCOUNTER 2024-04-21 10:23 | Emergency (ER) | payer MEDICARE, SELFPAY ==
--- NOTE | ~2024-04-21 | XR_ITS ---
EXAMINATION: XR hand RT min 3V DATE: 04/21/2024 11:03 INDICATION: Right hand injury. Fall. TECHNIQUE: 3 views of right hand were obtained. COMPARISON: None. FINDINGS: There is a fracture of radial styloid with 2 mm distraction. There is degenerative cystic c hange in proximal lunate. There is severe osteoarthritis of first carpometacarpal joint. There is mil d osteoarthritis of some of the metacarpophalangeal joints and interphalangeal joints. IMPRESSION: 1. Fracture of the radial styloid. 2. Polyarticular osteoarthritis. Reviewed, dictated and finalized at location A. STERED NURSE MATERNAL CHILD
[2024-04-21 10:32] VITALS: BP 113/56; PULSE 81; RESP 19; TEMP 37.1; O2SAT 100
--- NOTE | 2024-04-21 11:11 | ED.UPPEXIN ---
HPI - Extremity Injury (Upper) General Chief Complaint: Extremity Injury, Upper Stated Complaint: FALL Time Seen by Provider: 04/21/24 11:11 Source: patient, RN notes reviewed and old records reviewed Mode of arrival: ambulatory Limitations: no limitations History of Present Illness HPI narrative: Patient presents with complaints of right wrist and hand pain. He reports that he slipped and fell yesterday, caught self on outstretched right hand. He did also bump his head, denies any loss consciousness. He took 2 Tylenol last night with good relief of his wrist pain. He has extensive bruising to the wrist and the hand. He is able to move the right wrist, but does states that moving the thumb increases his pain. He has not been putting ice to the site. He voices no other concerns or complaints. Denies other injury and trauma. Related Data Home Medications Medication Instructions Recorded Confirmed acetaminophen 325 mg tablet 650 mg PO Q6H PRN Pain 03/31/24 04/21/24 (Tylenol) Allergies Allergy/AdvReac Type Severity Reaction Status Date / Time Sulfa (Sulfonamide Allergy Mild sensative Verified 04/21/24 10:42 Antibiotics) Review of Systems Review of Systems: All systems reviewed & are unremarkable except as noted in HPI and below Constitutional: Constitutional: Reports no additional constitutional complaints ENT: Reports system reviewed and no additional complaints, except as documented Cardiovascular: Cardiovascular: Reports no additional cardiovascular complaints Respiratory: Respiratory: Reports no additional respiratory complaints Gastrointestinal: Gastrointestinal: Reports no additional gastrointestinal complaints Musculoskeletal: Musculoskeletal: Reports no additional musculoskeletal complaints and Reports as per HPI [facility] Past Medical History Medical History Arthritis of both knees Diabetes mellitus, type 2 Eczema HTN (hypertension), benign Left knee DJD Mixed hyperlipidemia Obesity (BMI 30.0-34.9) Other fatigue Right knee DJD Surgical History Surgical History H/O arthroscopy of right knee 1989 History of cholecystectomy 2011 History of repair of retinal tear by laser photocoagulation Left eye 2011, right eye 2007 S/P total knee arthroplasty RT TKA 11/10/23 Status post laser cataract surgery of left eye 2013 Status post laser cataract surgery of right eye 2011 Family History Family History Father , 1982 COPD COPD (chronic obstructive pulmonary disease) Mother 2019 Dementia Heart disease Colon cancer Sibling Heart disease Sinus, maxillary, cancer, carcinoma Social History Social History Smoking packs per day: 0.5 Smoking cigarettes per day: 10.0 Years smoked: 6 Smoking pack-years: 3.00 Smoking status: Former smoker Tobacco type: cigarettes Second hand tobacco smoke exposure: No Smoking end date: 05/17/64 Additional smoking assessment comments: DENIES ANY FORM OF TOBACCO USE Alcohol intake: never Substance use: never Do You Feel Safe in your Home?: Yes Lack of Transportation: No Lack of Food: Never True Current Housing: I Have Housing Concerned About Future Housing: No Difficulty Paying Gas/Electric Bills: No Difficulty Paying for Meds: No Currently Unemployed: No Education: Bachelor's Degree Difficulty w/ Childcare or Family Care: No Living arrangements: with family Gender identity (if verbalized by the patient): Male Sexual Orientation (if Verbalized by the Patient): Straight or Heterosexual Spiritual care concerns: No Comments At the time of my signature, I reviewed and agree with the nursing past medical, surgical, social, and family history. There is no relevant family history pertinent to the patient complaint. Exam Const: General: cooperative, no acute distress, alert and awake Orientation/consciousness: oriented to person, oriented to place and oriented to time HENMT: Head: normal to inspection Resp: Effort & Inspection: normal respiratory effort and able to speak in complete sentences Auscultation: clear to auscultation bilaterally, no crackles, no rales, no rhonchi and no wheezes Cardio: Palpation: normal PMI Rate: regular rate Rhythm: regular rhythm Heart sounds: S1 normal heart sound present and S2 normal heart sound present Neuro: General: oriented to person, oriented to place and oriented to time Cranial nerves: Yes CN's II-XII intact bilaterally Extrem: Right upper extremity: full ROM, normal capillary refill, wrist tenderness of the distal radius, swelling of the dorsal wrist, normal ROM, ecchymosis (Hand/wrist), radial pulse present and ulnar pulse present and Extremity exam: right hand normal capillary refill, neurosensory exam normal, vascular exam radial pulse present, ulnar pulse present and normal capillary refill and normal ROM of fingers; no tenderness Psych: Appearance: grossly normal Thought process: Normal thought process present Insight: Good insight present (Psych) Judgement: Good judgement present (Psych) Course Course Level of Care: Express Care Visit Vital Signs Vital signs: Vital Signs Temperature 98.7 F 04/21/24 10:32 Pulse Rate 81 04/21/24 10:32 Respiratory Rate 19 04/21/24 10:32 Blood Pressure 113/56 L 04/21/24 10:32 Pulse Oximetry 100 04/21/24 10:32 Oxygen Delivery Room Air 04/21/24 10:32 Temperature 98.7 F 04/21/24 10:32 Pulse Rate 81 04/21/24 10:32 Respiratory Rate 19 04/21/24 10:32 Blood Pressure 113/56 L 04/21/24 10:32 Pulse Oximetry 100 04/21/24 10:32 Oxygen Delivery Room Air 04/21/24 10:32 Reviewed MDM - Extremity Injury (Upper) MDM Narrative Medical decision making narrative: Patient with distal radius fracture, ortho glass splint applied, sling provided. Patient states that he has an orthopedic doctor that he follows with with things such as this happen. He agrees to call this doctor when he gets home from here today. Follow-up with primary care provider, emergency department for new or worse symptoms. Discharge instructions reviewed with patient, as well as provided in writing per nursing staff. The instructions also include specific and strict return/GO TO THE ER as well as f/u information. All questions have been answered, and the patient deny any further questions with discharge and discharge plan. Some parts of this dictation were generated by voice recognition software and may contain typographical and/or grammatical inaccuracies. Differential Diagnosis Differential diagnosis: Likely sprain and strain of wrist, fracture of wrist and fracture of hand Medical Records Attestation: I reviewed the patient's medical records. Imaging Data My impression: Distal radial fracture Radiologist's impression: [facility] [address] [place] [address] XRay Report Signed Patient: Judson Mendoza : 1945 MR#: [id number] Age: 79 Acct:[id number] Loc: [facility] ADM Date: 04/21/24Attending Dr: Ordering Physician: Bria Reyes FNP Date of Service: 04/21/24 Procedure(s): XR hand RT min 3V Accession Number(s): [id number] cc: Bria Reyes FNP; Rafael Parsons MD~ EXAMINATION: XR hand RT min 3V DATE: 04/21/2024 11:03 INDICATION: Right hand injury. Fall. TECHNIQUE: 3 views of right hand were obtained. COMPARISON: None. FINDINGS: There is a fracture of radial styloid with 2 mm distraction. There is degenerative cystic change in proximal lunate. There is severe osteoarthritis of first carpometacarpal joint. There is mild osteoarthritis of some of the metacarpophalangeal joints and interphalangeal joints. IMPRESSION: 1. Fracture of the radial styloid. 2. Polyarticular osteoarthritis. Reviewed, dictated and finalized at location A. ED [employer] Dictated By: Navid Lemus MD 04/21/24 1112 Signed By: <Electronically signed by Navid Lemus MD in OV> 04/21/24 1114 Discharge Plan Discharge Clinical Impression: Fracture of wrist Patient Disposition: Home, Self-Care Condition: Stable Instructions: Antibiotic Form, Wrist Fracture in Adults (ED) Additional Instructions: Do not drive while taking pain medication. Follow-up with your orthopedist of choice. Emergency department for new or worse symptoms Prescriptions: New tramadol 50 mg tablet 50 mg PO TID PRN (Reason: pain) Qty: 14 0RF No Action metformin 500 mg tablet 1,000 mg PO BIDWMEAL Qty: 400 1RF Rx Instructions: take with largest meal acetaminophen [Tylenol] 325 mg tablet 650 mg PO Q6H PRN (Reason: Pain) (DME) blood sugar diagnostic Strip See Rx Instructions .Route Qty: 100 3RF Rx Instructions: once daily triamcinolone acetonide 0.1 % cream 1 applic topical BID Qty: 30 1RF Rx Instructions: knees (DME) lancing device with lancets [OneTouch Delica Plus Lanc Dev] Kit See Rx Instructions .Route Qty: 1 0RF Rx Instructions: As directed (DME) OneTouch Ultra Test Strip See Rx Instructions .Route Qty: 100 3RF Rx Instructions: Use to check BS once daily hydrochlorothiazide 12.5 mg tablet 12.5 mg PO DAILY Qty: 90 1RF (DME) lancets [OneTouch Delica Plus Lancet] 33 gauge misc See Rx Instructions .Route Qty: 100 3RF Rx Instructions: Use to check BS once daily losartan 100 mg tablet See Rx Instructions .ROUTE .COMPLEX Qty: 90 0RF Dose Instruction: Take 1 tablet by mouth once daily Rx Instructions: Take 1 tablet by mouth once daily amlodipine 10 mg tablet 10 mg PO HS Qty: 90 1RF rosuvastatin 5 mg tablet 5 mg PO HS Qty: 90 1RF Follow-up/Referrals: Rafael Parsons MD [Primary Care Provider] - 2 Weeks Time of Disposition: 11:48
== END 2024-04-21 12:05 | disposition home or self-care (01) ==
PROVIDERS: Emergency Provider Nurse Practitioner Family; PCP Family Medicine
DX: S52.511A Displaced fracture of right radial styloid process, initial encounter for closed fracture (principal); E11.9 Type 2 diabetes mellitus without complications; E78.2 Mixed hyperlipidemia; I10 Essential (primary) hypertension; Z87.891 Personal history of nicotine dependence; W01.0XXA Fall on same level from slipping, tripping and stumbling without subsequent striking against object, initial encounter
CPT/HCPCS: 29125; 73130; 99214; A4565; G0463

== ENCOUNTER 2024-06-06 09:48 | Outpatient (CLI) | payer MEDICARE, SELFPAY ==
[2024-06-06 11:56] LABS: Add Urine Microscopic? NO; Appearance Urine Clear (Clear); Bilirubin Urine Negative (Negative); Blood Urine Negative (Negative); Color Urine Yellow (Yellow); Glucose Urine UA Negative (Negative); Ketones Urine Negative (Negative); Leukocyte Esterase Ur Negative LEU/UL (Negative); Nitrate Urine Negative (Negative); Protein Urine Negative (Negative); Specific Grav Ur 1.009 (1.001-1.035); Urobilinogen Urine 0.2 mg/dL (<2.0)
[2024-06-06 12:03] LABS: Basophils Absolute Auto 0.1 K/mm3 (0.0-0.1); Eosinophils Absolute Auto 0.2 K/mm3 (0-0.3); Hematocrit 37.8 % (42.0-52.0); Immature Granulocyte Absolute 0.04 K/mm3 (0.00-0.031); Immature Granulocyte Percent A 0.5 % (0-0.5); Lymphocytes Absolute Auto 1.89 K/mm3 (0.9-3.2); Lymphocytes Percent Auto 23.9 % (18.3-44.2); Mean Corpuscular HGB Conc 31.7 g/dl (32-36); Mean Corpuscular Hemoglobin 29.9 pg (26-34); Mean Platelet Volume 10.5 fl (7.4-10.4); Monocytes Absolute Auto 0.8 K/mm3 (0.1-0.6); Monocytes Percent Auto 9.7 % (2.6-8.5); Neutrophils Absolute Auto 4.9 K/mm3 (1.3-6.7); Neutrophils Percent Auto 61.9 % (45.5-73.1); Platelet Count Result 257 k/mm3 (150-375); Red Blood Count 4.02 M/mm3 (4.6-6.20); White Blood Count 7.9 K/mm3 (4.5-10.0)
[2024-06-06 12:14] LABS: Partial Thromboplastin Time 28.6 Seconds (22.3-36.8); Prothrombin Time 13.7 Seconds (11.1-14.7)
[2024-06-06 12:20] LABS: Albumin Level 4.2 g/dL (3.5-5.1); Anion Gap 9 mmol/L (4-12); Blood Urea Nitrogen 18 mg/dL (9-20); Calcium 8.8 mg/dL (8.4-10.2); Carbon Dioxide 26 mmol/L (22-30); Chloride 103 mmol/L (98-107); Estimated Glomerular Filt Rate > 60; Glucose 118 mg/dL (65-110); Potassium 4.1 mmol/L (3.4-5.0); Sodium 138 mmol/L (137-145)
[2024-06-06 12:54] LABS: Urine Cotinine NEGATIVE
[2024-06-06 13:21] LABS: Hemoglobin A1C 6.7 % (<5.7)
[2024-06-06 13:27] LABS: MRSA (PCR) NOT DETECTED (NOT DETECTE)
--- OUTSIDE RECORDS SUMMARY | 2024-06-08 17:11 | XMS_ITS | Continuity of Care Document ---
Author Organization [facility] [place] [address] [place] [address] Phone Care Team Providers Care Balling Machine Operator Name Role Phone Van OD, Bean Unavailable Unavailable Procedures Procedure Date Eye Exam & Treatment Refraction Eye Exam Established Pt Ophthalmoscopy, Subsequent Ophthalmoscopy, Subsequent Eye Exam Established Pt Ophthalmoscopy, Subsequent Eye Exam Established Pt Ophthalmoscopy, Subsequent Eye Exam Established Pt Ophthalmoscopy, Subsequent Eye Exam Established Pt Ophthalmoscopy, Subsequent Office Consultation Ophthalmoscopy Ophthalmoscopy Treatment Of Retina Eye Exam, New Patient Advance Directives Directive Yes / No Effective Date File Name No Information Encounters Encounter Description Practice Location Reason(s) For Visit Diagnoses Date Provider Providers Copied on Encounter [facility], [address], [place], [place], [id number], [place] tel:[phone] [facility] No Information 0 Van OD Bean. [address], [place], [address], [place]. tel:[phone] [facility], [address], [place], [place], [id number], [place] tel:[phone] [facility] No Information 0 Eugenie Grant. [address] [place], [address], [place]. tel:[phone] Referring Provider: Rudy Cadena, [address] [place], [address]. tel:[phone] [facility], [address], [place], [place], [id number], [place] tel:[phone] [facility] No Information Oct-2 3-200 8 Traore Rudy. [address] [place], [address], [place]. tel:[phone] [facility], [address], [place], [place], [id number], [place] tel:[phone] [facility] No Information Apr-2 4-200 8 Eugenie Grant. [address] [place], [address], [place]. tel:[phone] [facility], [address], [place], [place], [address], [place] tel:[phone] [facility] No Information Apr-0 3-200 8 Eugenie Grant. [address] [place], [address], [place]. tel:[phone] [facility], [address], [place], [place], [address], [place] tel:[phone] [facility] No Information Mar-2 7-200 8 Eugenie Grant. [address] [place], [address], [place]. tel:[phone] Referring Provider: Rudy Cadena, [address] [place], [address]. tel:[phone] Office Consultation [facility], [address], [place], [place], [id number], [place] tel:[phone] [facility] No Information Mar-2 2-200 8 Eugenie Grant. [address] [place], [facility], [place]. tel:[phone] Referring Provider: Joaqumi sutton, [address] [address], [place], [facility]. tel:[phone] [facility], [address] [facility] [address], [place], [place], [address], [place] tel:[phone] [facility] No Information 8 Julia March. [address] [address], [place], [address], [place]. tel:[phone] Family History Family Member Type Diagnosis Age At Onset No Information Payers Payer name Insurance type Covered constitution party ID Authoriza tion(s) Medicare [facility] [id number] [place] [id number] Social History Type Description Quantity Date Captured Comments Sex Male Smoking Status No Information Chief Complaint And Reason For Visit No Information Reason For Referral Reason For Referral No Information History Of Present Illness Encounter Date Complaint History Of Prese nt Illness No Information Functional Status Date Functional Assessmen t No Information Instructions Date Instruction Additional Infor mation No Information Assessments Type Assessment Date No Information Patient Care Teams Name Effective Dates (start - stop) Status Members No Information
--- OUTSIDE RECORDS SUMMARY | 2024-06-08 17:11 | XMS_ITS | Referral Summary ---
Author Organization [facility] [address] [place] [address] Care Team Providers Care Production Quality Manager Name Role Phone Rafael Parsons MD Primary Care Provider [phone] Allergies Active Allergy Reactions Criticality Noted Date Comments Sulfa Photosensitivity Low 11/04/2023 Social History Tobacco Use Types Packs/Day Years Used Date Smoking Tobacco: Never Assessed Personal Safety Answer Date Recorded Getting School Help Needed Not on file 10/28 Sex and Gender Information Value Date Recorded Sex Assigned at Not on file 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
--- OUTSIDE RECORDS SUMMARY | 2024-06-08 17:11 | XMS_ITS | Clinical Summary ---
Author Organization [facility] [address] [facility] [address] [place] [address] Care Team Providers Care Forest Products Teacher Name Role Phone Rafael Parsons MD Primary Care Provider [phone] Allergies Active Allergy Reactions Criticality Noted Date Comments Sulfa Photosensitivity Low 11/04/2023 Social History Tobacco Use Types Packs/Day Years Used Date Smoking Tobacco: Never Assessed Personal Safety Answer Date Recorded Getting School Help Needed Not on file 10/28 Sex and Gender Information Value Date Recorded Sex Assigned at Not on file 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 Gender Identity Not on file Sexual Orientation Not on file Plan of Treatment Health Maintenance Due Date Last Done Comments Depression Screening 1944 Fall Risk Assessment 1945 Well Visit 65+ 2009 Covid-19 Vaccine (2023-2 5 season) 2024 03/23/2023, 02/03/2022, 10/09/2021, Additional history exists Influenza Vaccine (#1) 2024 , 02/03/2022, 02/06/2021, Additional history exists DTaP/Tdap/Td Vaccine (2 - Td or Tdap) 10/10/2031 10/09/2021 Pneumococcal vaccine 65+ Completed 11/16/2019, 11/14 Zoster Vaccine Completed 12/30/2021, 10/23/2021 Insurance MEDICARE SOLUTIONS Care Teams Forest Products Teacher Relationship Specialty Start Date End Date Rafael Parsons MD [facility] [address] [address] PCP - General Family Medicine 10/29/23
== END 2024-06-06 09:49 | disposition home or self-care (01) ==
PROVIDERS: PCP Family Medicine; Visit Provider Orthopaedic Surgery
DX: M17.12 Unilateral primary osteoarthritis, left knee (principal); Z01.818 Encounter for other preprocedural examination
CPT/HCPCS: 80048; 80307; 81003; 82040; 83036; 85025; 85610; 85730; 87641

== ENCOUNTER 2024-06-20 00:36 | Day surgery (SDC) | payer MEDICARE, SELFPAY ==
[2024-06-06 10:14] VITALS: BP 126/64; PULSE 75; RESP 16; TEMP 36.3; O2SAT 97; BMI 32.0
--- NOTE | 2024-06-06 10:31 | PC.NURSE ---
Addendum entered by Halley Jackson RN 06/06/24 10:45: CLARIFICATION: TAKE AMLODIPINE NIGHT BEFORE SURGERY PER USUAL MED SCHEDULE(TAKES AT HS). Original Note: Report to the Outpatient Waiting Room, entrance under the green pavilion located off [facility], at time __8:30AM on date ___06/20/24____. Planned Procedure Time: ___10:30AM .? Time changes happen often and if your time is changed the preop area will call you the afternoon before. - You and your visitor will be asked to self-screen and do not enter if you have any COVID symptoms. Please call surgeon if you need to reschedule. - A mask is optional within the hospital at this time. Patients may have clear liquids (water, carbonated beverages, clear teas, apple juice) until 3 hours prior to surgery (7:30AM) with a maximum of 20 ounces. - No food from midnight until time of surgery and no smoking. This includes no chewing gum, candy or mints. - Infants may have breast milk until 4 hours before surgery, infant formula 6 hours prior to surgery. - Children will be allowed to drink immediately following surgery.? If applicable, please bring a bottle or sippy cup to assist with drinking. Juice, water, soda, and popsicles are readily available.? For infants on formula, please bring formula the day of surgery.? Pacifiers are allowed. Take only the following medications with a SIP of water on the morning of surgery: AMLODIPINE DO NOT STOP ANY OF YOUR OTHER PRESCRIPTION MEDICATIONS PRIOR TO SURGERY EXCEPT THE FOLLOWING Medications to discontinue per physician ____HOLD NAPROXEN 7 DAYS PRE-OP PER DR SANDS Date to take last dose 06/12/24 Please no make-up, nail sinhala, hairspray, perfume, deodorant, or body powder the day of surgery.? No jewelry (including any body piercings) or valuables the day of surgery, leave them at home.? Please take a shower or bath the night before, or the morning of, surgery with an antibacterial soap.? Wear comfortable, loose fitting clothing.? Children are encouraged to wear pajamas. - Jewelry must be removed prior to entering the operating room.? Rings and piercings that are not removed may be cut off. - The hospital will not accept responsibility for valuables.? - Please leave all valuables, including medications, at home the day of surgery. If you are going home after surgery, a licensed [employer] company driver must drive you home.? - NO public transportation without another adult if you receive anesthesia. - We recommend that an adult stay with you for 24 hours following discharge. - We also recommend that you do not drive, make important decision, drink alcoholic beverages, or take any drugs that were not prescribed by your health care provider for at least 24 hours after your discharge time. Follow any additional instructions given to you from your surgeon. Telephone instructions given to ____PATIENT and asked if any additional questions and then verbalized understanding. Patient advised to call surgeon office or pre surgery nurse liaison [phone] if any additional questions.
[2024-06-20] VITALS (16 sets, daily range): BP systolic 122–140; BP diastolic 68–83; PULSE 75–94; RESP 12–20; TEMP 36.2–37; O2SAT 92–98; BMI 31.8
--- NOTE | ~2024-06-20 | XR_ITS ---
EXAMINATION: [id number] DATE: 06/20/2024 12:35 INDICATION: Total left knee arthroplasty. Postop. TECHNIQUE: 2 views of left knee were obtained. COMPARISON: None. FINDINGS: There is a total left knee arthroplasty in near-anatomic alignment without patellar resurfa cing. No fracture. There is gas in the joint and soft tissues, consistent with recent surgery. Anteri or skin eric are noted. IMPRESSION: 1. Total left knee arthroplasty in near-anatomic alignment. Reviewed, dictated and finalized at location A. ZIPPER TRIMMER
--- OUTSIDE RECORDS SUMMARY | 2024-06-20 00:38 | XMS_ITS | Clinical Summary ---
Author Organization [facility] [address] [facility] [address] [place] [address] Care Team Providers Care Ip Litigation Paralegal Name Role Phone Rafael Parsons MD Primary Care Provider [phone] Allergies Active Allergy Reactions Criticality Noted Date Comments Sulfa Photosensitivity Low 11/04/2023 Social History Tobacco Use Types Packs/Day Years Used Date Smoking Tobacco: Never Assessed Personal Safety Answer Date Recorded Getting School Help Needed Not on file 10/28 Sex and Gender Information Value Date Recorded Sex Assigned at Not on file 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
--- OUTSIDE RECORDS SUMMARY | 2024-06-20 00:38 | XMS_ITS | Referral Summary ---
Author Organization [facility] [address] Address [address] [place] [address] Care Team Providers Care Nuisance Wildlife Trapper Name Role Phone Rafael Parsons MD Primary Care Provider [phone] Allergies Active Allergy Reactions Criticality Noted Date Comments Sulfa Photosensitivity Low 11/04/2023 Social History Tobacco Use Types Packs/Day Years Used Date Smoking Tobacco: Never Assessed Personal Safety Answer Date Recorded Getting School Help Needed Not on file 10/28 Sex and Gender Information Value Date Recorded Sex Assigned at Not on file Legal Sex Male 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
--- NOTE | 2024-06-20 07:16 | WPDHPUPDATE1 ---
History and Physical Update Update Date/Time: 06/20/24 07:16 History and Physical has been reviewed, including an updated exam of the patient. There are NO changes in the patient's condition. Risks, benefits, and alternatives have been discussed and questions answered. Patient agrees to proceed with procedure.
[2024-06-20 09:29] LABS: Glucose Point of Care 127 mg/dl (65-105)
[2024-06-20] MEDS: TRANEXAMIC ACID 1,000MG/ISO100 1,000 MG/100 ML BAG 200 MG IVPB (09:35)
[2024-06-20] MEDS: ACETAMINOPHEN 500 MG TABLET 1000 MG PO (09:36)
--- NOTE | 2024-06-20 09:47 | WPDANESEPPF ---
Anes - Initial Pre Proc Eval Procedure: Operation Date: 06/20/24 10:30 Proposed Procedures p Left Total Knee Arthroplasty - Panchito Jean-Baptiste MD Date/Time: 06/20/24 09:47 Surgeon: Panchito Jean-Baptiste MD Pre Op Diagnosis: Lt Knee DJD Patient Data Age: 79 Gender: M Height: 1.73 m Weight: 95.2 kg Last Vital Signs Temp 36.2 C L 06/20/24 09:33 Pulse 75 06/20/24 09:33 Resp 16 06/06/24 10:14 BP 122/80 06/20/24 09:33 Pulse Ox 97 06/20/24 09:33 O2 Del Method Room Air 06/20/24 09:33 Allergies Allergy/AdvReac Type Severity Reaction Status Date / Time Sulfa (Sulfonamide Allergy Mild sensative Verified 06/06/24 10:10 Antibiotics) Home Medications ?Medication ?Instructions ?Recorded ?Confirmed ?Type blood sugar diagnostic #100 ea 04/06/22 06/06/24 Rx triamcinolone acetonide 0.1 % 1 applic topical BID #30 grams 06/24/22 06/06/24 Rx topical cream lancing device with lancets kit #1 ea 01/13/23 06/06/24 Rx (OneTouch Delica Plus Lancing Device kit) metformin 500 mg tablet 1,000 mg (2 x 500 mg) PO BIDWMEAL 10/22/23 06/06/24 Rx #400 tabs hydrochlorothiazide 12.5 mg tablet 12.5 mg PO DAILY #90 tabs 01/18/24 06/06/24 Rx lancets 33 gauge (OneTouch Delica #100 ea 02/04/24 06/06/24 Rx Plus Lancet) amlodipine 10 mg tablet 10 mg PO HS #90 tabs 03/06/24 06/06/24 Rx rosuvastatin 5 mg tablet 5 mg PO HS #90 tabs 03/06/24 06/06/24 Rx losartan 100 mg tablet See Rx Instructions .Route 05/18/24 06/06/24 Rx .COMPLEX #90 tabs blood sugar diagnostic (OneTouch #100 ea 05/29/24 06/06/24 Rx Ultra Test strips) acetaminophen 500 mg tablet 1,000 mg PO Q6H PRN pain 06/06/24 06/06/24 History (Acetaminophen Extra Strength) naproxen sodium 220 mg capsule 440 mg PO BID PRN pain 06/06/24 06/06/24 History (Aleve) chlorhexidine gluconate 4 % 1 applic topical DAILY #237 mL 06/09/24 Rx topical liquid (Hibiclens) Laboratory Tests 06/20/24 09:11 POC Capillary Glucose 127 H mg/dl (65-105) Patient hx anesthesia problems: none Family hx anesthesia problems: post op nausea/vomiting Results Review: All pre-operative results and documents have been reviewed as part of the pre-operative evaluation. [facility] Past Medical History Medical History Fracture of styloid process of right radius Right wrist pain Other fatigue Left knee DJD Right knee DJD Arthritis of both knees HTN (hypertension), benign Mixed hyperlipidemia Obesity (BMI 30.0-34.9) Eczema Diabetes mellitus, type 2 Surgical History Surgical History S/P total knee arthroplasty RT TKA 11/10/23 Status post laser cataract surgery of right eye 2011 Status post laser cataract surgery of left eye 2013 History of cholecystectomy 2012 History of repair of retinal tear by laser photocoagulation Left eye 2011, right eye 2007 H/O arthroscopy of right knee 1989 Family History Family History Father , 1982 COPD COPD (chronic obstructive pulmonary disease) Mother 2019 Dementia Heart disease Colon cancer Sibling Heart disease Sinus, maxillary, cancer, carcinoma Social History Social History Smoking packs per day: 0.5 Smoking cigarettes per day: 10.0 Years smoked: 6 Smoking pack-years: 3.00 Smoking status: Former smoker Tobacco type: cigarettes Second hand tobacco smoke exposure: No Smoking end date: 05/17/64 Additional smoking assessment comments: DENIES ANY FORM OF TOBACCO USE Alcohol intake: never Substance use: never Do You Feel Safe in your Home?: Yes Lack of Transportation: No Lack of Food: Never True Current Housing: I Have Housing Concerned About Future Housing: No Difficulty Paying Gas/Electric Bills: No Difficulty Paying for Meds: No Currently Unemployed: No Education: Bachelor's Degree Difficulty w/ Childcare or Family Care: No Living arrangements: with family Additional living arrangements comments: Gender identity (if verbalized by the patient): Male Sexual Orientation (if Verbalized by the Patient): Straight or Heterosexual Spiritual care concerns: No Anes - Eval Final PreProcedure Day of Procedure 06/20/24 09:47 Patient weight: obese Heart: regular rate and rhythm Lungs: clear to auscultation Airway: Mallampati scale class II Neurological: alert and oriented Last oral intake: >/= 8 hours ASA classification: III Emergent: no Anesthetic plan: proceed Anesthesia type and monitoring: general LMA and standard monitoring Results Review: All pre-operative results and documents have been reviewed as part of the pre-operative evaluation. Informed Consent: The patient's anesthetic plan and its attendant risks and benefits were discussed with the patient/family/POA. Questions were solicited and answers provided to the satisfaction of the patient/family/POA.
[2024-06-20] MEDS: LACTATED RINGERS 1,000 ML 30 ML IV CONT ×2 (10:00→12:19)
[2024-06-20] MEDS: ceFAZolin 2 GM/D5W 50 ML 2 GM/50 ML BAG IVPB ×2 (10:11→17:54)
--- NOTE | 2024-06-20 10:11 | WPDANESPNB ---
Anes - Peripheral Nerve Block Date/Time: 06/20/24 10:11 I have discussed with the patient/family/POA the placement of a peripheral nerve block for post-operative pain management, including associated risks, benefits, complications, and side effects. Alternative methods of post-operative analgesia were detailed. Questions were solicited and answers provided to the satisfaction of the patient/family/POA. Time-Out: A pre-procedural Time-Out was completed immediately before starting the procedure and confirmed: Patient Identification, Site, Procedure, Patient Position and the Availability of Requisite Equipment. Clinical Indications: Acute post-operative pain management requested by the operative surgeon. Nerve Block Insertion Note Anes-nerve block: adductor canal left Patient position: supine Skin prep: chlorhexidine Needle: 22 gauge, stimulating, insulated echogenic needle. Needle length: 80 mm Technique: ultrasound Technique comment: fent 50mcg Injectate: bupivacaine 0.5% with epi 5 mcg/ml (30ml no epi) and dexamethasone (mg) (4) Observations: tolerated well Complications: none Procedure start time:: 956 Procedure end time:: 1003
[2024-06-20] MEDS: SODIUM CHLORIDE 0.9% IV 37.7 ML, MORPHINE SULFATE INJ (*CRX) 2 MG, ROPivacaine HCL 1% 2... INFILTRATE (10:41)
[2024-06-20] MEDS: TRANEXAMIC ACID 1,000 MG/10 ML AMPUL 1000 MG IV PUSH (11:47)
--- NOTE | 2024-06-20 12:12 | W.PM.PROC2 ---
Procedure Note - Detailed Date of Procedure 06/20/24 Pre-op Diagnosis Lt Knee DJD Post-op Diagnosis Same Procedure Performed L TKA Surgeon Panchito Jean-Baptiste MD Anesthesia General Description of Procedure THE LEFT KNEE WAS PREPPED AND DRAPED IN THE STERILE FASHION. A MIDLINE SKIN INCISION WAS MADE. A MEDIAL PARAPATELLAR ARTHROTOMY WAS MADE. THE PATELLA WAS EVERTED. THERE WAS TRICOMPARTMENT DJD. THERE WAS MINIMAL PATELLA DJD. AN INTRAMEDULLARY PRICE WAS PLACED IN THE FEMUR. A DISTAL FEMORAL CUT WAS MADE IN 5 DEGREES OF VALGUS REMOVING APPROXIMATELY 9 MM OF BONE FROM THE DISTAL FEMUR. THE FEMUR WAS SIZED TO 65. A 67.5 FEMORAL CUTTING BLOCK WAS PLACED IN 3 DEGREES OF EXTERNAL ROTATION AND IN ALIGNMENT WITH JASMIN'S LINE AND THE TRANSEPICONDYLAR AXIS. ANTERIOR POSTERIOR AND CHAMFER CUTS WERE MADE. THE CUTS WERE EXCELLENT. NEXT AN INTRAMEDULLARY CUTTING GUIDE WAS PLACED IN THE TIBIA. A TRANS TIBIAL CUT WAS MADE ALONG THE LONG AXIS OF THE TIBIA. APPROXIMATELY 10 MM OF BONE WAS REMOVED FROM THE HIGH SIDE OF THE TIBIA. THE TIBIA WAS THEN PLANED TO A SMOOTH SURFACE. POSTERIOR FEMORAL OSTEOPHYTES WERE REMOVED FROM THE FEMORAL CONDYLES. A 79 TIBIAL TRIAL WAS PLACED IN ALIGNMENT WITH THE 1/3 MEDIAL ASPECT OF THE TIBIAL TUBERCLE. THEN A 67.5 FEMORAL TRIAL COMPONENT WAS PLACED. BOTH HAD EXCELLENT FITS. EVENTUALLY A 0 MM POLYETHYLENE TRIAL COMPONENT WAS PLACED. THE KNEE WAS TAKEN THROUGH A RANGE OF MOTION. THE KNEE CAME OUT TO FULL EXTENSION. THERE WAS NO ABNORMAL TILT TO THE PATELLA. THERE WAS GOOD A/P AND VARUS/VALGUS STABILITY. THERE WAS NO EXCESSIVE ROLL BACK WITH FLEXION. THE TRIAL COMPONENTS WERE REMOVED. THEN A 67.5 FEMORAL COMPONENT AND 79 TIBIAL COMPONENT WITH A 10 POLYETHYLENE COMPONENT WERE CEMENTED INTO PLACE. ONCE THE CEMENT WAS HARD THE KNEE WAS TAKEN THROUGH A ROM AGAIN AND FOUND TO BE STABLE WITH NO PATELLA TILT NO EXCESSIVE ROLL BACK WITH FLEXION AND GOOD STABILITY WITH COMPLETE AND FULL EXTENSION. THE KNEE WAS IRRIGATED WITH STERILE BETADINE AND WATER FOR ABOUT 3 MINUTES. THE BLEEDERS WERE CAUTERIZED. THE ARTHROTOMY WAS REPAIRED WITH NUMBER 1 VICRYL. THE SUB CUTANEOUS LAYER WITH 2-0 VICRYL AND THE SKIN WITH YASMANI. THE WOUND WAS WASHED AND A STERILE DRESSING WAS APPLIED. PATIENT WAS EXTUBATED. Estimated Blood Loss -150.0 Pathology None sent Complications No immediate complications Condition Stable Disposition PACU
[2024-06-20 12:31] LABS: Glucose Point of Care 159 mg/dl (65-105)
[2024-06-20] MEDS: fentaNYL CITRATE INJ (*CRX) 100 MCG/2 ML VIAL 25 MCG IV PUSH ×5 (12:37→12:52)
--- NOTE | 2024-06-20 13:50 | ADMGEN ---
This patient, Judson Mendoza, was admitted to Room to be determined. Patient/family oriented to hospital policies and general routines including ID bracelet, bed and alarms, visiting hours, pain management, procedures, bathroom and other care routines, personal items, smoking policy, room service/diet, and visiting hours. Information on how to activate the Rapid Response Team has been discussed. Patient/Family are encouraged to report perceived risks to care and to ask questions if they do not understand what they are told or what they should do.
--- NOTE | 2024-06-20 14:23 | ADMGEN ---
This patient, Judson Mendoza, was admitted to [facility] Surgery-1, OP Room 17. Patient/family oriented to hospital policies and general routines including ID bracelet, bed and alarms, visiting hours, pain management, procedures, bathroom and other care routines, personal items, smoking policy, room service/diet, and visiting hours. Information on how to activate the Rapid Response Team has been discussed. Patient/Family are encouraged to report perceived risks to care and to ask questions if they do not understand what they are told or what they should do.
[2024-06-20 16:33] LABS: Glucose Point of Care 247 mg/dl (65-105)
[2024-06-20] MEDS: SENNA/DOCUSATE SODIUM TABLET 2 TAB PO (16:58)
[2024-06-20] MEDS: CELECOXIB 200 MG CAPSULE PO (16:58)
[2024-06-20] MEDS: metFORMIN HCL 500 MG TABLET 1000 MG PO (16:58)
[2024-06-20] MEDS: oxyCODONE/ACETAMINOPHEN (*CRX) 5-325 MG TABLET 1 TABLET PO (18:09)
[2024-06-20] MEDS: ROSUVASTATIN 5 MG TABLET PO (20:37)
[2024-06-20] MEDS: amLODIPine BESYLATE 10 MG TABLET PO (20:37)
[2024-06-20] MEDS: FAMOTIDINE 20 MG TABLET PO (20:38)
[2024-06-20 22:27] LABS: Glucose Point of Care 159 mg/dl (65-105)
[2024-06-21] MEDS: oxyCODONE/ACETAMINOPHEN (*CRX) 5-325 MG TABLET 1 TABLET PO ×3 (00:09→11:07)
[2024-06-21] MEDS: ceFAZolin 2 GM/D5W 50 ML 2 GM/50 ML BAG IVPB ×2 (01:21→10:58)
[2024-06-21 03:59] VITALS: BP 132/83; PULSE 77; RESP 18; TEMP 36.5; O2SAT 99
[2024-06-21 07:43] LABS: Basophils Percent Auto 0.3 % (0.2-1.2); Eosinophils Absolute Auto 0.1 K/mm3 (0-0.3); Eosinophils Percent Auto 0.4 % (0-4.4); Hematocrit 34.5 % (42.0-52.0); Hemoglobin 10.9 g/dL (14.0-18.0); Immature Granulocyte Absolute 0.08 K/mm3 (0.00-0.031); Immature Granulocyte Percent A 0.6 % (0-0.5); Lymphocytes Percent Auto 12.6 % (18.3-44.2); Mean Corpuscular HGB Conc 31.6 g/dl (32-36); Mean Corpuscular Hemoglobin 29.8 pg (26-34); Mean Corpuscular Volume 94.3 fl (80-100); Mean Platelet Volume 9.5 fl (7.4-10.4); Monocytes Absolute Auto 2.1 K/mm3 (0.1-0.6); Monocytes Percent Auto 14.7 % (2.6-8.5); Neutrophils Absolute Auto 10.2 K/mm3 (1.3-6.7); Neutrophils Percent Auto 71.4 % (45.5-73.1); Platelet Count Result 216 k/mm3 (150-375); Red Blood Count 3.66 M/mm3 (4.6-6.20); Red Cell Distribution Width 13.9 % (11.5-14.5); White Blood Count 14.2 K/mm3 (4.5-10.0)
[2024-06-21 07:53] LABS: Anion Gap 5 mmol/L (4-12); Blood Urea Nitrogen 22 mg/dL (9-20); Calcium 9.1 mg/dL (8.4-10.2); Carbon Dioxide 29 mmol/L (22-30); Chloride 103 mmol/L (98-107); Estimated CRCL calculation 70 ml/min; Estimated Glomerular Filt Rate > 60; Glucose 125 mg/dL (65-110); Potassium 4.9 mmol/L (3.4-5.0); Sodium 137 mmol/L (137-145)
[2024-06-21 07:59] VITALS: BP 132/77; PULSE 80; RESP 18; TEMP 36.7; O2SAT 96
[2024-06-21 09:10] LABS: Glucose Point of Care 123 mg/dl (65-105)
[2024-06-21] MEDS: SENNA/DOCUSATE SODIUM TABLET 2 TAB PO (10:55)
[2024-06-21] MEDS: LOSARTAN POTASSIUM 100 MG TABLET BY MOUTH (10:55)
[2024-06-21] MEDS: polyethylene glycoL 3350 17 GM POWD.PACK PO (10:56)
[2024-06-21] MEDS: ASPIRIN 325 MG ENTERIC TABLET 650 MG PO (10:56)
[2024-06-21] MEDS: hydroCHLOROthiazide 12.5 MG CAPSULE PO (10:56)
[2024-06-21] MEDS: CELECOXIB 200 MG CAPSULE PO (10:56)
[2024-06-21] MEDS: FAMOTIDINE 20 MG TABLET PO (10:56)
[2024-06-21] MEDS: metFORMIN HCL 500 MG TABLET 1000 MG PO (10:56)
[2024-06-21 11:47] LABS: Glucose Point of Care 145 mg/dl (65-105)
[2024-06-21 11:59] VITALS: BP 118/71; PULSE 72; RESP 18; TEMP 36.5; O2SAT 95
--- NOTE | 2024-06-21 14:12 | WPDANESPN ---
Anes - Prog Note Post-Op Date/Time: 06/21/24 14:12 Cardiovascular status: normal Respiratory status: normal Airway patency: baseline Mental status: baseline Post-Op hydration status: normal Vital Signs: Last Vital Signs Temp 97.7 F 06/21/24 11:59 Pulse 72 06/21/24 11:59 Resp 18 06/21/24 11:59 BP 118/71 06/21/24 11:59 Pulse Ox 95 06/21/24 11:59 O2 Del Method Room Air 06/20/24 20:38 O2 Flow Rate 2 06/20/24 14:00 Pain Score (VAS): 0/10 I/O: Intake & Output 06/20/24 06/21/24 06/21/24 23:59 07:59 15:59 Intake Total 250 350 480 Output Total 800 Balance 250 -450 480 Laboratory Tests 06/21/24 07:37 06/21/24 07:37 06/20/24 06/20/24 06/21/24 16:31 22:20 07:37 WBC 14.2 H RBC 3.66 L Hgb 10.9 L Hct 34.5 L MCV 94.3 MCH 29.8 MCHC 31.6 L RDW 13.9 Plt Count 216 MPV 9.5 Immature Gran % (Auto) 0.6 H Neut % (Auto) 71.4 Lymph % (Auto) 12.6 L [place] % (Auto) 14.7 H Eos % (Auto) 0.4 Baso % (Auto) 0.3 Lymph # (Auto) 1.80 [place] # (Auto) 2.1 H Eos # (Auto) 0.1 Baso # (Auto) 0.0 Abs Immat Gran (auto) 0.08 H Absolute Neuts (auto) 10.2 H Absolute Nucleated RBC 0.000 Nucleated RBC % 0.0 Sodium 137 Potassium 4.9 Chloride 103 Carbon Dioxide 29 Anion Gap 5 BUN 22 H Creatinine 0.82 Estim Creat Clear Calc 70 Estimated GFR > 60 Glucose 125 H POC Capillary Glucose 247 H 159 H Calcium 9.1 06/21/24 06/21/24 08:03 11:41 WBC RBC Hgb Hct MCV MCH MCHC RDW Plt Count MPV Immature Gran % (Auto) Neut % (Auto) Lymph % (Auto) [place] % (Auto) Eos % (Auto) Baso % (Auto) Lymph # (Auto) [place] # (Auto) Eos # (Auto) Baso # (Auto) Abs Immat Gran (auto) Absolute Neuts (auto) Absolute Nucleated RBC Nucleated RBC % Sodium Potassium Chloride Carbon Dioxide Anion Gap BUN Creatinine Estim Creat Clear Calc Estimated GFR Glucose POC Capillary Glucose 123 H 145 H Calcium Post-procedural complaints: none Patient Feedback: Patient satisfied with anesthetic care.
--- NOTE | 2024-06-21 14:15 | P.PNOP_ITS ---
Progress Note: A&P Assessment and Plan (1) S/P total knee arthroplasty: Qualifiers: Laterality: right Qualified Code(s): Z96.651 - Presence of right artificial knee joint Code(s): Z96.659 - Presence of unspecified artificial knee joint Status: Acute Assessment and Plan: POD 1 DOING WELL. OK TO DC HOME F/U IN 3 WEEKS Subjective Subjective Date/Time Seen: 06/21/24 14:15 Interval history: POD 1 DOING WELL. NO CALF PAIN. GOOD PROGRESS WITH PT Exam Extrem: Other: VSS AFEBRILE DRESSING DRY NV INTACT NEG HOMANS SIGN, CALF SOFT NON TENDER Objective Data Vital Signs Vital Signs: Vital Signs - 24 hr 06/20/24 14:30 06/20/24 15:00 06/20/24 17:00 Temperature 36.3 C L 36.3 C L Pulse Rate 82 83 87 Respiratory Rate 18 18 20 Blood Pressure 137/75 134/74 135/68 Pulse Oximetry 96 98 97 Oxygen Delivery 06/20/24 19:59 06/20/24 20:38 06/20/24 23:59 Temperature 37.0 C 37.0 C Pulse Rate 89 94 Respiratory Rate 18 18 Blood Pressure 123/76 127/70 Pulse Oximetry 98 98 Oxygen Delivery Room Air 06/21/24 03:59 06/21/24 07:59 06/21/24 11:59 Temperature 36.5 C 36.7 C 36.5 C Pulse Rate 77 80 72 Respiratory Rate 18 18 18 Blood Pressure 132/83 132/77 118/71 Pulse Oximetry 99 96 95 Oxygen Delivery Intake/Output Intake/Output: Intake & Output 06/18/24 06/19/24 06/20/24 06/21/24 23:59 23:59 23:59 23:59 Intake Total 750 830 Output Total 800 Balance 750 30 Meds/Results Medications: Active Medications Generic Name Dose Route Start Last Admin Trade Name Freq PRN Reason Stop Dose Admin Acetaminophen 1,000 mg 06/20/24 14:14 Acetaminophen 500 Mg Tablet PO Q6H PRN pain Amlodipine Besylate 10 mg 06/20/24 21:00 06/20/24 20:37 Amlodipine Besylate 10 Mg Tablet PO 10 mg HS COLTON Administration Aspirin 650 mg 06/21/24 09:00 06/21/24 10:56 Aspirin 325 Mg Enteric Tablet PO 650 mg DAILY COLTON Administration Celecoxib 200 mg 06/20/24 17:00 06/21/24 10:56 Celecoxib 200 Mg Capsule PO 200 mg BIDWM COLTON Administration Diazepam 5 mg 06/20/24 14:14 Diazepam (*Crx) 5 Mg Tablet PO Q8H PRN Spasms Diphenhydramine HCl 25 mg 06/20/24 14:14 Diphenhydramine Hcl Inj 50 Mg/Ml Vial IV PUSH Q6H PRN Itching Famotidine 20 mg 06/20/24 21:00 06/21/24 10:56 Famotidine 20 Mg Tablet PO 20 mg Q12HR COLTON Administration Hydrochlorothiazide 12.5 mg 06/21/24 09:00 06/21/24 10:56 Hydrochlorothiazide 12.5 Mg Capsule PO 12.5 mg DAILY COLTON Administration Hydromorphone HCl 1 mg 06/20/24 14:14 Hydromorphone Hcl Inj (*Crx) 1 Mg/Ml Syr IV PUSH Q2H PRN Breakthrough Pain Rated 7-10 or NPO Hydromorphone HCl 0.5 mg 06/20/24 14:14 Hydromorphone Hcl Inj (*Crx) 1 Mg/Ml Syr IV PUSH Q2H PRN Breakthrough Pain Rated 4-6 or NPO Ibuprofen 800 mg in 200 mls @ 400 mls/hr 06/20/24 14:14 Caldolor 800 Mg/200 Ml IVPB Q6H PRN Breakthrough Pain Rated 1-3 or NPO Losartan Potassium 100 mg 06/21/24 09:00 06/21/24 10:55 Losartan Potassium 100 Mg Tablet BY MOUTH 100 mg DAILY COLTON Administration Metformin HCl 1,000 mg 06/20/24 17:00 06/21/24 10:56 Metformin Hcl 500 Mg Tablet PO 1,000 mg BIDWM COLTON Administration Naloxone HCl 0.1 mg 06/20/24 14:14 Naloxone Hcl 0.4 Mg/Ml Vial IV PUSH Q2M PRN Opiate Reversal Ondansetron HCl 4 mg 06/20/24 14:14 Ondansetron Inj 4 Mg/2 Ml Vial IV PUSH Q4H PRN Nausea And Vomiting Oxycodone/Acetaminophen 1 tablet 06/20/24 14:14 06/21/24 11:07 Oxycodone/Acetaminophen (*Crx) 5-325 Mg Tablet PO 1 tablet Q4H PRN Administration Pain Rated 4-6 Oxycodone/Acetaminophen 1 tab 06/20/24 14:14 Oxycodone/Acetaminophen (*Crx) 10-325 Mg Tablet PO Q6H PRN Pain Rated 7-10 Polyethylene Glycol 17 gm 06/21/24 09:00 06/21/24 10:56 Polyethylene Glycol 3350 17 Gm Powd.Pack PO 17 gm QAM COLTON Administration Rosuvastatin Calcium 5 mg 06/20/24 21:00 06/20/24 20:37 Rosuvastatin 5 Mg Tablet PO 5 mg HS COLTON Administration Senna/Docusate Sodium 2 tab 06/20/24 17:00 06/21/24 10:55 Senna/Docusate Sodium Tablet PO 2 tab BID COLTON Administration Radiology Results: ITS Impressions Knee X-Ray 06/20/24 12:36 IMPRESSION: 1. Total left knee arthroplasty in near-anatomic alignment. Labs Labs: Laboratory Results - last 24 hr 06/20/24 06/20/24 06/21/24 16:31 22:20 07:37 WBC 14.2 H RBC 3.66 L Hgb 10.9 L Hct 34.5 L MCV 94.3 MCH 29.8 MCHC 31.6 L RDW 13.9 Plt Count 216 MPV 9.5 Immature Gran % (Auto) 0.6 H Neut % (Auto) 71.4 Lymph % (Auto) 12.6 L [place] % (Auto) 14.7 H Eos % (Auto) 0.4 Baso % (Auto) 0.3 Lymph # (Auto) 1.80 [place] # (Auto) 2.1 H Eos # (Auto) 0.1 Baso # (Auto) 0.0 Abs Immat Gran (auto) 0.08 H Absolute Neuts (auto) 10.2 H Absolute Nucleated RBC 0.000 Nucleated RBC % 0.0 Sodium 137 Potassium 4.9 Chloride 103 Carbon Dioxide 29 Anion Gap 5 BUN 22 H Creatinine 0.82 Estim Creat Clear Calc 70 Estimated GFR > 60 Glucose 125 H POC Capillary Glucose 247 H 159 H Calcium 9.1 06/21/24 06/21/24 08:03 11:41 WBC RBC Hgb Hct MCV MCH MCHC RDW Plt Count MPV Immature Gran % (Auto) Neut % (Auto) Lymph % (Auto) [place] % (Auto) Eos % (Auto) Baso % (Auto) Lymph # (Auto) [place] # (Auto) Eos # (Auto) Baso # (Auto) Abs Immat Gran (auto) Absolute Neuts (auto) Absolute Nucleated RBC Nucleated RBC % Sodium Potassium Chloride Carbon Dioxide Anion Gap BUN Creatinine Estim Creat Clear Calc Estimated GFR Glucose POC Capillary Glucose 123 H 145 H Calcium
== END 2024-06-21 15:45 | disposition home health service (06) ==
LOC: ANHSURGERY 08:25 → ANHSUROVER 14:15 → ANH3MEDSUR 17:09
PROVIDERS: PCP Family Medicine; Visit Provider Orthopaedic Surgery
PROC: (CPT 27447; principal; 2024-06-20 10:30)
DX: M17.12 Unilateral primary osteoarthritis, left knee (principal); G89.18 Other acute postprocedural pain; I10 Essential (primary) hypertension; E11.9 Type 2 diabetes mellitus without complications; E78.2 Mixed hyperlipidemia; Z79.84 Long term (current) use of oral hypoglycemic drugs; Z87.891 Personal history of nicotine dependence; E66.9 Obesity, unspecified; Z68.31 Body mass index [BMI] 31.0-31.9, adult
CPT/HCPCS: 27447; 64447; 36415; 73560; 80048; 82948; 85025; 86850; 86900; 86901; 97110; 97116; 97162; 97165; 97530; A9270; C1713; C1776; J0171; J0690; J1100; J1171; J1885; J2003; J2270; J2371; J2405; J2704; J2795; J3010; J7120